=== PATIENT | male | born 1970 | race Caucasian/White ===

== ENCOUNTER 2017-05-09 18:54 | Emergency (ER) | payer BC, OTHER ==
--- NOTE | 2017-05-09 19:13 | EDPHY ---
H & P Time Seen by Provider: 05/09/17 19:09 HPI/ROS: HPI Knee surgery, needs pain medication. 47-year-old male by private vehicle with his . This patient had right- sided medial meniscus surgery arthroscopically by Dr. Carrera of [facility] prior to arrival today. He was discharged with Vicodin. He reports he has had 2 doses of 2 pills about 4 hours apart and the Vicodin is not controlling his pain. He is requesting a stronger pain medication. He reports that he call the office of his orthopedist and was told to come to the emergency department to have his pain medications switched. He denies any fever. No loss of sensation, weakness or significant swelling involving his right lower extremity. He is weight-bearing to the right knee as instructed by his orthopedist. ROS: Constitutional: No fever, no chills. No weakness. Musculoskeletal: No back pain. No neck pain. Right knee pain. As above. Skin: No rashes. Neurological: No focal weakness or altered sensation. Past medical history: As above. Social history: Here with his . Nonsmoker. Physical Exam: General Appearance: Alert, no distress. This patient is responding to questions appropriately and in full sentences. This patient appears well- hydrated and well-nourished. Eyes: Pupils equal and round no pallor or injection. No lid edema, erythema or injection. Right lower extremity exam: The right lower extremity is in a compression stocking. There is a bulky gauze dressing over the medial aspect of the right knee. The right lower extremity is neurovascularly intact with strong distal pulses at dorsalis pedis and posterior tibial. Capillary refill in all digits is normal. Sensation in all digits is normal. Neurological: Motor sensory function is grossly intact. Cranial nerves are normal. Skin: Warm and dry, no rashes. Extremities are symmetrical. All joints range without pain or impingement except his postoperative right knee. Psychiatric: No agitation. No depression. Database: EKG: Imaging: Procedures: Emergency department course: For evaluation of this patient I discussed different pain medication options. I agreed to switch his Vicodin to Percocet. He gave me his prescription bottle of Vicodin. I will write him for Percocet, number 30 as a replacement. He and his agree with this plan. He otherwise feels comfortable going home and has no complaints. Return to emergency department precautions discussed. Follow up with his machine specialist was reviewed. All of his questions were answered. He was discharged in good condition. Differential Diagnosis: The differential diagnosis on this patient includes but is not limited to requiring stronger pain medications status post right medial meniscus surgery. Postoperative infection, acute postoperative injury, neurovascular problems unlikely. This represents a partial list of diagnoses considered. These considerations are based on history, physical exam, past history, reassessment and diagnostic testing. Smoking Status: Never smoked Allergies/Adverse Reactions: No Known Allergies Allergy (Verified 05/31/16 21:31) Home Medications: Medication Instructions Recorded Anastrozole 05/09/17 Chorionic Gonadotropin, Human 05/09/17 Docusate Sodium [Colace 100 MG (*)] 100 mg PO TID #20 cap 05/09/17 Omnitrope 05/09/17 Testosterone Cypionate [Testone 200 mg IM 05/09/17 Cik] oxyCODONE/APAP 5/325 [Percocet 1 - 2 tab PO Q4-6PRN PRN #30 tab 05/09/17 5/325 (*)] Departure - Departure Disposition: Home, Routine, Self-Care Clinical Impression: Postoperative pain of right knee Condition: Good Instructions: Narcotic Pain Management (ED) Additional Instructions: Read and follow provided instructions. Follow-up with your machine specialist at least by phone tomorrow for recheck. Pe Ell/Percocet dosin-2 every 4-6 hours for pain. Do not drive on this medication. Take stool softeners as prescribed to avoid constipation. Return to the emergency department for worsening or uncontrolled pain, swelling , fever or other serious concerns. Referrals: ETHAN CARRERA [Non Staff Provider (MD)] - As per Instructions Prescriptions: Docusate Sodium [Colace 100 MG (*)] 100 mg PO TID #20 cap oxyCODONE/APAP 5/325 [Percocet 5/325 (*)] 1 - 2 tab PO Q4-6PRN PRN #30 tab PRN Reason: For Moderate To Severe Pain
[2017-05-09 19:16] VITALS: RESP 20; TEMP 97.9; O2SAT 94
[2017-05-09 19:20] VITALS: BP 149/71; PULSE 72
== END 2017-05-09 19:24 | disposition home or self-care (01) ==
LOC: CED 18:54
DX: G89.18 Other acute postprocedural pain (principal); M25.561 Pain in right knee